=== PATIENT | male | born 1960 | race Caucasian/White ===

== ENCOUNTER 2019-12-30 22:02 | Inpatient (IN) | payer OTHER ==
[~2019-12-30] VITALS: Ht 170.2 cm; Wt 72.4 kg
--- NOTE | 2019-12-30 22:10 | NUR ---
Pt arrives via EMS stretcher to room 346. Is alert and oriented x4. Has IVF and antibiotic infusing to left AC site, no redness or swelling. Denies pain at this time.
[2019-12-30 22:18] VITALS: BP 125/72; PULSE 82; TEMP 98.8
--- NOTE | 2019-12-30 23:15 | NUR ---
UA sent to lab. Urine yellow and clear.
[2019-12-30 23:57] LABS: TRICYCLIC ANTIDEPRESS URINE NEGATIVE
[2019-12-31] VITALS (12 sets, daily range): BP systolic 97–134; BP diastolic 58–82; PULSE 58–92; TEMP 97.9–98.5
--- NOTE | 2019-12-31 02:00 | NUR ---
RESTING QUIETLY, DENIES NEEDS AT THIS TIME.
--- NOTE | 2019-12-31 06:00 | NUR ---
Emptied 400cc of tea colored urine from urinal. Denies need for pain meds at this time.
[2019-12-31 07:13] LABS: BASO # 0.1 (0.0-0.2); BASO % 0.4 % (0.0-2.0); EOS # 0.1 (0.0-0.7); EOS % 0.8 % (0-4.0); GRAN # 8.1 (1.4-6.5); GRAN % 62.7 % (42.2-75.2); HEMOGLOBIN 11.6 g/dl (13.5-18.0); LYMPH # 3.2 (1.2-3.4); LYMPH % 24.7 % (20.0-51.0); MEAN CELL VOLUME 85 fl (80.0-100.0); MEAN CORPUSCULAR HEMOGLOBIN 29 pg (27.0-31.0); MEAN CORPUSCULAR HGB CONC 34 g/dl (33.0-37.0); MEAN PLATELET VOLUME 10.2 fl (7.4-10.4); MONO # 1.4 (0.1-0.6); MONO % 10.7 % (1.7-9.3); PLATELET COUNT 356 K/mm3 (130-400); RED BLOOD COUNT 4.02 M/mm3 (4.20-5.60); REDCELL DISTRIBUTION WIDTH-CV 13.1 % (11.5-14.5)
[2019-12-31 07:35] LABS: ALBUMIN 3.2 gm/dL (3.5-5.0); BILIRUBIN,TOTAL 0.2 mg/dL (0.0-1.0); CALCIUM 8.2 mg/dL (8.4-10.2); CREATININE, serum 1.54 (0.66-1.25); POTASSIUM 4.1 mmol/L (3.4-5.0); TOTAL PROTEIN 6.1 gm/dL (6.4-8.2)
--- NOTE | 2019-12-31 09:40 | NUR ---
HOSPITALIST CARE TEAM ROUNDING.
--- NOTE | 2019-12-31 09:43 | NUR ---
First visit from the animal cruelty investigator. No needs right now.
--- NOTE | 2019-12-31 09:50 | NUR ---
PATIENT GOING DOWN TO SURGERY VIA BED. CONSENT ON CHART.
--- NOTE | 2019-12-31 11:45 | NUR ---
PATIENT BACK IN ROOM POST OP CYSTO W/ STENT. ALERT. VSS. DENIES PAIN. NO C/O N/V. IV FLUIDS INFUSING INTO LEFT AC IV. LUNCH AT BEDSIDE. HEAD TO TOE ASSESSMENT WNL. PATIENT CLEARED TO DC FROM UROLOGY STANDPOINT. HOSPITALIST STILL WANTS TO MONITOR. NO OTHER NEEDS. CALL LIGHT IN REACH
--- NOTE | 2019-12-31 13:30 | NUR ---
PATIENT RESTING COMFORTABLY POST OP. VSS. NO C/O PAIN. PATIENT SLEEPING
--- NOTE | 2019-12-31 14:40 | NUR ---
PETROS contacted the patient's room phone to discuss discharge plan. The patient lives alone in [place]. He states that he has two friends staying with him at this time. He reports that his sister, Alycia Rivers (ph#[phone]), also lives in [place]. He reports independence with ADLs and does not have any DME. The patient does not have a primary care provider. The patient has [employer] for insurance. The patient reports that he does not have a vehicle to be able to drive [facility] to [facility]. The patient reports that he would be interested in getting set up with someone in [place]. The patient reports that he used to have Medicaid and Disability, but that they were dropped. He states that he would be interested in applying for both again. PETROS consulted Financial Counselor, Guillermo. PETROS then discussed getting set up with a PCP at [facility] or [facility]. The patient was interested in [facility]. PETROS contacted Genie at [facility]. Genie reports that due to the patient have [employer], she will need to check with her route delivery supervisor on whether they can take him on as a patient. She states that they will be giving PETROS a call back later today or tomorrow. The patient has not needed any medications, but states that he would like to utilize a pharmacy in [place]. The patient does not have advanced directives completed, but he was interested in obtaining a form for DPOA-HC. PETROS provided. The patient states that his next of kin is his daughter, Griffin Gutierrez. He states that she lives in [facility]. The patient does not have his cell phone here and he could not recall her phone number. PTEROS then discussed the patient's meth use. 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 He states that on a scale from 1-10, that he is at a 10 on wanting to quit. PETROS discussed inpatient treatment, outpatient treatment, and NA meetings. The patient reports that he would be interested in NA. PETROS provided the patient with a list of the different NA meeting around [place]. The patient plans to return home upon discharge. PETROS to continue to follow.
--- NOTE | 2019-12-31 16:48 | NUR ---
Jessi, at [facility], contacted SW to inform that they would not be able to take the patient on for primary care, due to the patient already being [facility] to the [facility]. She states that they could assist the patient with getting to the [facility], by providing the patient with a $25 gas voucher. SW attempted to contact the patient's room phone to inform him of this. The patient did not answer. SW to follow up with the patient tomorrow morning.
--- NOTE | 2019-12-31 21:00 | NUR ---
Report received. 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 Assessment compelete. VS stable. A&Ox3. Denies nausea/shortness of breath. States he is having some pain with urinating but not enough for medication. Encouraged to call if pain increases. Verbalizes understanding. Denies questions/concerns. Call light in reach. Will monitor.
[2020-01-01 03:58] VITALS: BP 100/63; PULSE 60; TEMP 98.4
--- NOTE | 2020-01-01 05:43 | NUR ---
Rested well this shift. Had percocet 1 tab x1 with good pain control. Voiding without difficulty. Tolearting diet. Denies nausea/shortness of breath. VS remained stable. NS@125ml/hr to left AC. WIll monitor.
[2020-01-01 07:10] LABS: HEMOGLOBIN 11.1 g/dl (13.5-18.0); MEAN CELL VOLUME 88 fl (80.0-100.0); MEAN CORPUSCULAR HEMOGLOBIN 29 pg (27.0-31.0); MEAN CORPUSCULAR HGB CONC 33 g/dl (33.0-37.0); MEAN PLATELET VOLUME 10.4 fl (7.4-10.4); PLATELET COUNT 319 K/mm3 (130-400); REDCELL DISTRIBUTION WIDTH-CV 13.6 % (11.5-14.5)
[2020-01-01 07:14] LABS: HEMATOCRIT 33.4 % (42.0-52.0)
[2020-01-01 07:23] VITALS: BP 112/57; PULSE 65; TEMP 98
[2020-01-01 07:26] LABS: ALBUMIN 3.2 gm/dL (3.5-5.0); BILIRUBIN,TOTAL 0.3 mg/dL (0.0-1.0); CALCIUM 8.2 mg/dL (8.4-10.2); CREATININE, serum 1.48 (0.66-1.25); MAGNESIUM 1.9 mg/dL (1.6-2.3); POTASSIUM 4.2 mmol/L (3.4-5.0)
--- NOTE | 2020-01-01 07:30 | NUR ---
PATIENT HAD CYSTO W/ STENT ON 12.30. A&0 X3. VSS. PATIENT HAS UTI. CREATININE DOWNT TO 1.48. PT IS VOIDING SUFFICENT AMOUNTS USING URINAL. PATIENT HAS NO ABNORMAL FINDINGS ON HEAD TO ASSESSMENT. PATIENT HAS INT IV ON LEFT AC. NO C/O N/V. PATIENT DENIED PAIN THIS MORNING. INDEPENDENT IN ROOM. NO OTHER NEEDS.
[2020-01-01 08:21] LABS: BAND 2 % (0-10); BASOPHIL 1 % (0-2); EOSINOPHIL 2 % (0-4); LYMPHOCYTE 43 % (20.0-51.0); NEUTROPHILS 43 % (42.0-75.2)
[2020-01-01 08:22] LABS: PLATELET ESTIMATE NORMAL (NORMAL)
--- NOTE | 2020-01-01 10:30 | NUR ---
PETROS contacted the patient to inform about the $25 gas voucher. The patient reports that this would be helpful for him. He states that he could provide it to a friend that could transport him to an appointment at the [facility]. He states that he used to follow up there and believes he was on the Green Team. PETROS informed the community service specialist of this for a follow up appointment. PETROS contacted Jessi at [facility] to notify of the patient's interest in the gas voucher. Jessi reports that she will notify the patient's welfare case worker and that the patient would be able to come pick it up tomorrow or Sunday. PETROS informed the patient of this. The patient verbalized understanding. He states that he lives within walking distance of [facility] and would be able to pick it up. He had no other questions or concerns for PETROS. No other additional needs at this time.
[2020-01-01 11:12] VITALS: BP 114/80; PULSE 58; TEMP 98.1
[2020-01-01 15:27] VITALS: BP 114/65; PULSE 66; TEMP 98.7
--- NOTE | 2020-01-01 18:10 | NUR ---
patient is a&o*3. VSS. patient spend most of the shift sleeping. patient is requesting medication to help sleep. patient denies pain and discomfort. IV CDI. no other concerns expressed. call light within reach.
[2020-01-01 19:32] VITALS: BP 110/63; PULSE 71; TEMP 98.3
--- NOTE | 2020-01-01 20:00 | NUR ---
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 Assessment complete. VS stable. Denies pain/shortness of breath/nausea. Voiding without difficulty but states still bloody off an on. Encouraged to increase fluid intake. Provided with large water pitcher as well as juice per request. Plan of care discussed for antibiotics/pain meds/accurate I&O/calling for questions or concerns. Verbalizes understanding. Call light in reach. Will monitor.
[2020-01-01 23:37] VITALS: BP 132/83; PULSE 63; TEMP 98.1
[2020-01-02 03:23] VITALS: BP 128/81; PULSE 63; TEMP 98.4
--- NOTE | 2020-01-02 03:30 | NUR ---
Slept most of shift. Has denied pain/nausea/shortness of breath. VS remain stable. Urine output adequate-urine still reddish. PO intake better this shift compared to last NOC. Did have to encourage. 20g IV INTd. Has been up in room. Call light in reach. Bed in low position/wheels locked. WIll monitor.
[2020-01-02 06:38] LABS: HEMOGLOBIN 11.5 g/dl (13.5-18.0); MEAN CELL VOLUME 86 fl (80.0-100.0); MEAN CORPUSCULAR HEMOGLOBIN 29 pg (27.0-31.0); MEAN CORPUSCULAR HGB CONC 34 g/dl (33.0-37.0); MEAN PLATELET VOLUME 10.2 fl (7.4-10.4); PLATELET COUNT 315 K/mm3 (130-400); RED BLOOD COUNT 4.01 M/mm3 (4.20-5.60); REDCELL DISTRIBUTION WIDTH-CV 13.1 % (11.5-14.5)
[2020-01-02 06:44] LABS: HEMATOCRIT 34.3 % (42.0-52.0)
[2020-01-02 06:54] LABS: ALBUMIN 3.3 gm/dL (3.5-5.0); BILIRUBIN,TOTAL 0.3 mg/dL (0.0-1.0); CALCIUM 8.6 mg/dL (8.4-10.2); CREATININE, serum 1.28 (0.66-1.25); POTASSIUM 4.1 mmol/L (3.4-5.0); TOTAL PROTEIN 6.4 gm/dL (6.4-8.2)
[2020-01-02 07:35] VITALS: BP 130/77; PULSE 58; TEMP 98.5
[2020-01-02 08:07] LABS: EOSINOPHIL 1 % (0-4); LYMPHOCYTE 33 % (20.0-51.0); NEUTROPHILS 62 % (42.0-75.2)
[2020-01-02 08:08] LABS: PLATELET ESTIMATE NORMAL (NORMAL)
[2020-01-02] MEDS ORDERED: AMOXICILLIN 8751 TAB PO (09:46)
[2020-01-02] MEDS ORDERED: NORCO 325 MG-51 TAB PO (10:05)
[2020-01-02] MEDS ORDERED: PYRIDIUM 100MG100 MG PO (10:05)
[2020-01-02] MEDS ORDERED: CIPRO 500MG TA500 MG PO (10:06)
--- NOTE | 2020-01-02 10:31 | NUR ---
SW attended clinical rounds. The patient is to discharge back home today, 01/01. SW reviewed discharge plan of following up at the [facility] and [facility] have the $25 gas card for him. The patient verbalized understanding and was in agreeance to this. The patient reports that he does not have transport back home. He gave SW approval to contact his sister, Alycia Rivers. SW contacted Alycia. Alycia reports that she would not be able to provide transport, but gave SW her sister, Lisa's phone number. PETROS contacted Lisa. Lisa reports that she would not be able to, but that her could. Transport back home is to be provided by the patient's [id number], Jonny, after 1500. SW provided Jonny with the surgical unit's phone number. PETROS updated the patient and the patient's RN. No additional needs at this time.
[2020-01-02 12:21] VITALS: BP 114/83; PULSE 63; TEMP 98.5
--- NOTE | 2020-01-02 14:38 | NUR ---
PETROS contacted the [facility] to schedule a hospital follow up appointment. The senior receptionist reports that the patient is apart of the Red Team and that due to COVID-19, they are not scheduling appointments until March. PETROS secured the patient an appointment on 04/15/2020 at 1315 with labs at 1100 that day. PETROS notified the patient's RN of the appointment. PETROS informed the patient. The patient was in agreeance to this appointment. No additional needs at this time.
--- NOTE | 2020-01-02 15:50 | NUR ---
Patient is discharging home. Discharge instructions discussed with patient. No questions verbalized. 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 Explained he also has a script for [place] that he has to get filled at the pharmacy, patient verbalized understanding. The urology office wanted him to call Sunday for the follow up, showed patient the phone number to call on his discharge paperworks. All belongings packed up by patient. Copies of discharge instructions sent with patient. Patient walked out with this nurse.
== END 2020-01-02 15:50 | disposition home or self-care (01) | DRG 854 ==
LOC: MEDICAL 22:02 → SURG 22:09
PROVIDERS: Nurse Practitioner Family; Urology; ADMIT Internal Medicine
PROC: 0T768DZ Dilation of Right Ureter with Intraluminal Device, Via Natural or Artificial Opening Endoscopic (ICD-10-PCS; principal; 2019-12-31 09:45)
PROC: BT1D1ZZ Fluoroscopy of Right Kidney, Ureter and Bladder using Low Osmolar Contrast (ICD-10-PCS; 2019-12-31 09:45)
DX: A41.9 Sepsis, unspecified organism (principal); N13.6 Pyonephrosis; N17.9 Acute kidney failure, unspecified; N28.9 Disorder of kidney and ureter, unspecified; I77.1 Stricture of artery; R91.1 Solitary pulmonary nodule; F19.10 Other psychoactive substance abuse, uncomplicated; S22.089G Unspecified fracture of T11-T12 vertebra, subsequent encounter for fracture with delayed healing
CPT/HCPCS: OP; 99223-AI; 99232-AI; 99239; C1769; C2617; J0330; J0690; J2405; J2543; J2704; J3010; J7030; J7120; Q9967

== ENCOUNTER → 2020-09-27 | Outpatient (CLI) | payer OTHER ==
[~2020-09-27] MED LIST: AMOXICILLIN 8751 TAB PO; CIPRO 500MG TA500 MG PO; NORCO 325 MG-51 TAB PO; PYRIDIUM 100MG100 MG PO
== END ==
LOC: COL.RAD
DX: Z02.71 Encounter for disability determination (principal); M25.571 Pain in right ankle and joints of right foot